=== PATIENT | male | born 1970 | race Caucasian/White ===

== ENCOUNTER → 2021-03-31 | Day surgery (SDC) | payer OTHER ==
[~2021-03-31] VITALS: Ht 185 cm; Wt 140.6 kg
[~2021-03-31] MED LIST: ARMOUR THYROID60 MG PO; ASPIRIN EC81 MG PO; BACTRIM DS TAB1 EACH PO; CYCLOBENZAPRINE10 MG PO; CYMBALTA20 MG PO; CYMBALTA60 MG PO; DULOXETINE HCL20 MG PO; FLEXERIL5 MG PO; MELOXICAM15 MG PO; MELOXICAM7.5 MG PO; NP THYROID60 MG PO; OXYCODON-ACETA1 EAC1 PO; OXYCODONE-ACET1 EAC1 PO; PERCOCET 5-3251 EACH PO; [UNRECOGNIZED DRUG - OTHER]
== END | disposition home or self-care (01) ==
LOC: FAS 07:30
DX: M54.16 Radiculopathy, lumbar region (principal); M48.061 Spinal stenosis, lumbar region without neurogenic claudication; M96.1 Postlaminectomy syndrome, not elsewhere classified; E66.01 Morbid (severe) obesity due to excess calories; G89.29 Other chronic pain; R94.31 Abnormal electrocardiogram [ECG] [EKG]
CPT/HCPCS: 72100; 76000; 93005; C1778; C1787; C1820; J2001; J2250; J2704; J3010; J3370; J7040; J7120